=== PATIENT | female | born 1970 | race African-American/Black ===

== ENCOUNTER 2018-01-13 17:59 | Emergency (ER) | payer SELFPAY ==
[2018-01-13] MEDS ORDERED: HYDROcodone/Acetaminophen 5/325 mg Tablet ONE (18:32)
== END 2018-01-13 18:46 | disposition home or self-care (01) ==
LOC: BURERS 17:59
DX: M54.5 Low back pain (principal); J45.909 Unspecified asthma, uncomplicated; X50.1XXA Overexertion from prolonged static or awkward postures, initial encounter
CPT/HCPCS: 99283

== ENCOUNTER 2018-09-03 13:40 | Emergency (ER) | payer SELFPAY | END 2018-09-03 14:20 | disposition home or self-care (01) | LOC: BURERS 13:40 | DX: B34.9 Viral infection, unspecified (principal); J45.909 Unspecified asthma, uncomplicated | CPT/HCPCS: 87804; 99283 ==

== ENCOUNTER 2020-03-14 11:53 | Emergency (ER) | payer SELFPAY ==
[2020-03-14] MEDS ORDERED: Ondansetron PF 4 MG/2 ML Vial ONE (12:25)
[2020-03-14] MEDS ORDERED: Ondansetron ODT 4 MG TAB ONE (12:34)
[2020-03-14 12:52] LABS: Bilirubin Negative (Negative); Blood, Urine Negative (Negative); Clarity Clear (Clear); Glucose, Urine (Dipstick) >=1000 mg/dL (Negative); Ketone, Urine Negative (Negative); Leukocyte Negative (Negative); Nitrite Negative (Negative); Protein, Urine (Dipstick) Negative (Neg-Trace); Urobilinogen 0.2 mg/dL (Less than 2); pH, Urine 5.5 (5.0-9.0)
[2020-03-14 12:57] LABS: ALT (SGPT) 28 U/L (8-55); Albumin 3.9 g/dL (3.5-5.0); Alkaline Phosphatase 254 U/L (40-110); Anion Gap 25 mmol/L (10-20); BUN (Urea Nitrogen) 12 mg/dL (7.0-18.7); Bilirubin, Total 0.7 mg/dL (0.2-1.2); CK (CPK) 453 U/L (29-168); Calc. Creatinine Clearance 0 mL/min (70-130); Carbon Dioxide 24 mmol/L (22-29); Chloride 80 mmol/L (98-107); Globulin 4.5 g/dL (2.4-3.5); Potassium 3.9 mmol/L (3.5-5.1); Protein, Total 8.4 g/dL (6.0-8.3); Sodium 125 mmol/L (136-145)
[2020-03-14 13:00] LABS: Specific Gravity, Urine 1.028 (1.002-1.036)
[2020-03-14 13:11] LABS: Hemoglobin 10.4 g/dL (12.0-16.0); Mean Corpuscular HGB CONC 28.2 g/dL (32.0-36.0); Mean Corpuscular Hemoglobin 17.6 pg (27.0-31.0); Mean Corpuscular Volume 62.6 fL (78.0-98.0); Mean Platelet Volume 7.3 fL (7.4-10.4); Platelet Count 459 thou/uL (130-400); RBC Distribution Width 17.3 % (11.5-14.5); Red Blood Cell (RBC) Count 5.91 mill/uL (4.20-5.40); White Blood Cell (WBC) Count 9.1 thou/uL (4.8-10.8)
[2020-03-14 13:45] LABS: AST (SGOT) 29 U/L (5-34)
[2020-03-14 13:53] LABS: Glucose 875 mg/dL (70-105); Magnesium 2.2 mg/dL (1.6-2.6)
[2020-03-14 14:02] LABS: Eosinophils 1 % (0-10); Hypochromia SLIGHT = 6-15 cells (100X) (0-5/hpf); Lymphocytes 22 % (21-51); MDiff Complete? YES; Microcytosis MODERATE=15-30 cells (100X) (0-5/hpf); Monocytes 4 % (0-10); Neutrophil 72 % (42-75); Spherocytes SLIGHT = 1-5 cells (100X) (None Seen)
--- NOTE | 2020-03-14 14:14 | RAD ---
CHEST TWO VIEWS: Date: 02-23-2020 FINDINGS: The heart is normal in size and the lungs are clear. No infiltrate or effusion was seen. There is no vascular congestion or edema. IMPRESSION: No acute thoracic finding. POS: HOME
[2020-03-14] MEDS ORDERED: Insulin Regular 300 UNITS/3 ML VIAL ONE (14:40)
== END 2020-03-14 15:35 | disposition home or self-care (01) ==
LOC: BURERS 11:53
DX: E11.00 Type 2 diabetes mellitus with hyperosmolarity without nonketotic hyperglycemic-hyperosmolar coma (NKHHC) (principal); M62.82 Rhabdomyolysis; I10 Essential (primary) hypertension; J45.909 Unspecified asthma, uncomplicated
CPT/HCPCS: 36416; 71046; 80053; 81003; 82550; 83735; 83880; 84443; 84484; 85025; 93005; 94760; 96374; J1815; J2405; Q0162

== ENCOUNTER 2020-07-20 19:51 | Emergency (ER) | payer OTHER, SELFPAY ==
[2020-07-20] MEDS ORDERED: Ondansetron PF 4 MG/2 ML Vial ONE (20:19)
[2020-07-20] MEDS ORDERED: Fentanyl 100 MCG/2 ML VIAL ONE (20:19)
== END 2020-07-20 21:12 | disposition home or self-care (01) ==
LOC: BURERS 19:51
DX: S93.402A Sprain of unspecified ligament of left ankle, initial encounter (principal); I10 Essential (primary) hypertension; J45.909 Unspecified asthma, uncomplicated; W10.9XXA Fall (on) (from) unspecified stairs and steps, initial encounter
CPT/HCPCS: 29515; J2405; J3010

== ENCOUNTER 2021-05-24 09:29 | Emergency (ER) | payer SELFPAY | END 2021-05-24 10:46 | disposition home or self-care (01) | LOC: BURERS 09:29 | DX: J45.909 Unspecified asthma, uncomplicated (principal); M65.4 Radial styloid tenosynovitis [de Quervain]; I10 Essential (primary) hypertension; E11.9 Type 2 diabetes mellitus without complications; Z79.4 Long term (current) use of insulin | CPT/HCPCS: J7620 ==

== ENCOUNTER 2022-02-22 11:06 | Emergency (ER) | payer OTHER, SELFPAY | END 2022-02-22 13:03 | disposition home or self-care (01) | LOC: BURERS 11:06 | DX: J06.9 Acute upper respiratory infection, unspecified (principal); E11.9 Type 2 diabetes mellitus without complications; Z79.4 Long term (current) use of insulin; I10 Essential (primary) hypertension; Z79.899 Other long term (current) drug therapy | CPT/HCPCS: 87804; 99283 ==